=== PATIENT | male | born 1960 | race Caucasian/White ===

== ENCOUNTER → 2020-01-31 | Day surgery (SDC) | payer OTHER ==
[~2020-01-31] MED LIST: FENTANYL CITRATE/PF 100MCG/2 ML INJ ONE; IOPAMIDOL 200 MG/ML 20 ML VIAL IT ONE; LIDOCAINE HCL 1% 30ML-PF VIAL ONE; LIDOCAINE HCL 2% LOCAL INJ 5 ML SDV VIAL INJ ONE; MELOXICAM7.5 MG PO; MIDAZOLAM HCL 2 MG/2 ML VIAL ONE; PROPOFOL IV EMULSION 10 MG/ML 20 ML VIAL ONE; TRIAMCINOLONE ACET 40 MG/ML VIAL ONE
[2020-01-31 07:05] VITALS: BP 121/85
== END | disposition home or self-care (01) ==
LOC: OR 05:25
PROVIDERS: ATTEND Physical Medicine & Rehabilitation Pain Medicine
DX: M47.896 Other spondylosis, lumbar region (principal); F41.9 Anxiety disorder, unspecified; Z01.810 Encounter for preprocedural cardiovascular examination
CPT/HCPCS: 64493; 64494; 64495; 93005; J2001 ×2; J2250; J2704; J3010; J3301; Q9967; 76000

== ENCOUNTER 2020-02-06 15:50 | Outpatient (RCR) | payer OTHER ==
[~2020-02-06 15:50] MED LIST changes: -FENTANYL CITRATE/PF 100MCG/2 ML INJ ONE; -IOPAMIDOL 200 MG/ML 20 ML VIAL IT ONE; -LIDOCAINE HCL 1% 30ML-PF VIAL ONE; -LIDOCAINE HCL 2% LOCAL INJ 5 ML SDV VIAL INJ ONE; -MIDAZOLAM HCL 2 MG/2 ML VIAL ONE; -PROPOFOL IV EMULSION 10 MG/ML 20 ML VIAL ONE; -TRIAMCINOLONE ACET 40 MG/ML VIAL ONE
== END 2020-02-07 ==
LOC: PT 15:50
PROVIDERS: ATTEND Physical Medicine & Rehabilitation Pain Medicine
DX: M53.82 Other specified dorsopathies, cervical region (principal); M51.26 Other intervertebral disc displacement, lumbar region; M62.81 Muscle weakness (generalized)